=== PATIENT | female | born 1960 | race African-American/Black ===

== ENCOUNTER 2021-10-17 18:29 | Emergency (ER) | payer BC ==
[2021-10-17 19:34] LABS: Bacteria/HPF None Seen HPF (None Seen); Bilirubin Negative (Negative); Blood, Urine 1+ (Negative); Clarity Clear (Clear); Glucose, Urine (Dipstick) Normal (Negative); Ketone, Urine Negative (Negative); Leukocyte 25 Leu/uL (Negative); Nitrite Negative (Negative); Protein, Urine (Dipstick) Negative (Neg-Trace); RBC/HPF 0-3 HPF (0-3); Squamous Epithelial None Seen HPF (0-3); Urobilinogen Normal mg/dL (Less than 2)
== END 2021-10-17 20:35 | disposition home or self-care (01) ==
LOC: ERS 18:29
DX: R30.0 Dysuria (principal)
CPT/HCPCS: 81003; 81015; 99284